=== PATIENT | female | born 1970 | race Caucasian/White ===

== ENCOUNTER 2019-05-06 15:56 | Emergency (ER) | payer BC, SELFPAY ==
--- NOTE | ~2019-05-06 | XR_ITS ---
EXAMINATION: XR ankle LT min 3V DATE: 05/06/2019 17:01 INDICATION: Left ankle pain TECHNIQUE: Anteroposterior, lateral, mortise, and additional oblique view of the ankle were obtained. COMPARISON: None. FINDINGS: There is no fracture, dislocation, or subluxation. The bones and joint spaces are normal. T here is ankle soft tissue swelling. A plantar calcaneal enthesophyte is noted. IMPRESSION: 1. Ankle soft tissue swelling without acute osseous abnormality. Reviewed, dictated and finalized at location A. MUFF ASSEMBLER
[2019-05-06 15:58] VITALS: BP 132/74; PULSE 92; RESP 16; TEMP 36.2; O2SAT 100
--- NOTE | 2019-05-06 17:18 | ED.GENADULT ---
HPI - General Adult General Chief complaint: Extremity Injury, Lower Stated complaint: left ankle injury, tailbone pain x4 months Time Seen by Provider: 05/06/19 16:07 Source: patient Mode of arrival: ambulatory Limitations: no limitations History of Present Illness HPI narrative: Patient is a 48-year-old female who presents to emergency department for evaluation of left ankle injury that occurred was ambulating rolled the ankle with bruising swelling and tenderness patient has continued to ambulate on the extremity and presents for evaluation of continued pain. Patient also notes tailbone pain for 4 months that occurs most days is worse with prolonged sitting and standing has not been seen for this complaint denies radiation of pain Related Data Home Medications Medication Instructions Recorded Confirmed ergocalciferol (vitamin D2) 05/06/19 sumatriptan succinate mg PO 05/06/19 topiramate 05/06/19 venlafaxine mg PO 05/06/19 zolpidem 05/06/19 Allergies Allergy/AdvReac Type Severity Reaction Status Date / Time No Known Allergies Allergy Verified 05/06/19 16:34 Review of Systems Review of Systems: Narrative: CONSTITUTIONAL: Denies fever, chills, or sweats. SKIN: Patient with bruising and swelling of the ankle and foot MUSCULOSKELETAL: Positive for left ankle pain NEUROLOGIC: Denies numbness, or weakness. PMFSH Social History Social History Gender identity (if verbalized by the patient): Female Exam Narrative: Exam Narrative: GENERAL: Well-appearing, well-nourished, and in no acute distress. HEAD: Normocephalic, atraumatic. EYES: PERRLA and EOMI. ENT: Nares clear, no rhinorrhea or epistaxis. Mucous membranes moist. EXTREMITIES: Bruising swelling and tenderness of the left ankle joint made worse with palpation SKIN: Warm, dry, no rash. NEURO: No focal deficits. Alert and oriented x3. Cranial nerves II through XII grossly intact. Neurovascularly intact PSYCH: Normal mood and affect. Course Course Emergency Course: Patient in the room in no distress aware of case findings treatment plan and diagnosis agreeing to follow-up as directed Vital Signs Vital signs: Vital Signs Temperature 97.1 F L 05/06/19 15:58 Pulse Rate 92 05/06/19 15:58 Respiratory Rate 16 05/06/19 15:58 Blood Pressure 132/74 05/06/19 15:58 Pulse Oximetry 100 05/06/19 15:58 Temperature 97.1 F L 05/06/19 15:58 Pulse Rate 92 05/06/19 15:58 Respiratory Rate 16 05/06/19 15:58 Blood Pressure 132/74 05/06/19 15:58 Pulse Oximetry 100 05/06/19 15:58 Medical Decision Making MDM Narrative Medical decision making narrative: Patients injury or pain is consistent with musculoskeletal etiology. No signs of neurological or vascular compromise on exam. Compartments and tisues are soft without signs of compartment syndrome. Pain is felt appropriate for further evaluation on an outpatient basis. Vital Signs Vital Signs: Vital Signs Temperature 97.1 F L 05/06/19 15:58 Pulse Rate 92 05/06/19 15:58 Respiratory Rate 16 05/06/19 15:58 Blood Pressure 132/74 05/06/19 15:58 Pulse Oximetry 100 05/06/19 15:58 Temperature 97.1 F L 05/06/19 15:58 Pulse Rate 92 05/06/19 15:58 Respiratory Rate 16 05/06/19 15:58 Blood Pressure 132/74 05/06/19 15:58 Pulse Oximetry 100 05/06/19 15:58 Imaging Data Radiologist's impression: ITS Impressions Ankle X-Ray 05/06/19 17:08 IMPRESSION: 1. Ankle soft tissue swelling without acute osseous abnormality. Discharge Plan Discharge Clinical Impression: Ankle strain Patient Disposition: Home, Self-Care Condition: Stable Instructions: Antibiotic Form, Ankle Strain (ED) Additional Instructions: Wear brace and use crutches. No weight on the affected leg until able to bear weight without pain. Ice and elevate extremity. Pain medication as needed and directed.
== END 2019-05-06 17:32 | disposition home or self-care (01) ==
PROVIDERS: Emergency Provider Emergency Medicine; PCP Internal Medicine
DX: S39.013A Strain of muscle, fascia and tendon of pelvis, initial encounter (principal); X50.9XXA Other and unspecified overexertion or strenuous movements or postures, initial encounter
CPT/HCPCS: 73610; 99283

== ENCOUNTER 2019-07-04 11:38 | Outpatient (CLI) | payer BC, SELFPAY ==
--- NOTE | ~2019-07-04 | XR_ITS ---
EXAMINATION: XR sacrum coccyx min 2V INDICATION: Sacrococcygeal pain TECHNIQUE: Three views of the sacrum and coccyx are obtained. COMPARISON: CT, 03/04/2016 FINDINGS: Bone alignment is normal. There is no fracture. Phleboliths are noted in the pelvis. The sam wel gas pattern is normal. There is mild lumbar spondylosis. IMPRESSION: 1. No acute osseous abnormality. Reviewed, dictated and finalized at location A.
== END 2019-07-04 11:39 | disposition home or self-care (01) ==
LOC: CHSIMG 11:41
PROVIDERS: PCP Internal Medicine; Visit Provider Internal Medicine
DX: M53.3 Sacrococcygeal disorders, not elsewhere classified (principal)
CPT/HCPCS: 72220

== ENCOUNTER 2019-07-11 08:54 | Outpatient (CLI) | payer BC, SELFPAY ==
--- NOTE | ~2019-07-11 | CT_ITS ---
EXAMINATION: CT pelvis wo con DATE: 07/11/2019 09:14 INDICATION: Chronic pelvic and tailbone pain. TECHNIQUE: High resolution computed tomography (CT) of the pelvis was performed without intravenous c ontrast. Additional sagittal and coronal reconstructions were performed. Automated exposure control a nd iterative reconstruction technique were employed. The dose-length product was 819.00 mGy-cm. COMPARISON: CT dated 03/04/2016 FINDINGS: Visualized portions of the bowels including the appendix are normal. Bladder is normal. The uterus is not identified and has likely been surgically resected. Bilateral adnexal cysts/follicles, the large r on the right measuring 2.6 cm. No free intraperitoneal gas or fluid. No pathologically enlarged pel vero or inguinal lymphadenopathy. Mild disc height loss and vacuum phenomena at L4-L5. Minimal osteoar thritis at the bilateral sacroiliac joints with vacuum phenomena and tiny marginal osteophytes. No co rtical erosions or subarticular changes to suggest an inflammatory sacroiliitis. There is also very m ild bilateral hip osteoarthritis with small marginal osteophytes and relatively preserved joint space s. IMPRESSION: 1. Normal sacrum and coccyx. No etiology identified for reported pelvic/tailbone pain. Reviewed, dictated and finalized at location A. IMPRESSION: 1. Normal sacrum and coccyx. No etiology identified for reported pelvic/tailbon e pain.
== END 2019-07-11 08:55 | disposition home or self-care (01) ==
LOC: CHSIMG 08:56
PROVIDERS: PCP Internal Medicine; Visit Provider Internal Medicine
DX: R10.2 Pelvic and perineal pain (principal); M25.572 Pain in left ankle and joints of left foot
CPT/HCPCS: 72192

== ENCOUNTER 2019-07-14 08:58 | Outpatient (CLI) | payer BC, SELFPAY ==
--- NOTE | ~2019-07-14 | MR_ITS ---
EXAMINATION: MR ankle LT wo con DATE: 07/14/2019 10:03 INDICATION: Left ankle pain. TECHNIQUE: Magnetic resonance imaging (MRI) of the left ankle was performed without intravenous contr ast. Sequences included sagittal PD-weighted FS FSE, sagittal PD-weighted FSE, coronal PD-weighted FS FSE, coronal PD-weighted FSE, axial PD-weighted FS FSE, and axial PD-weighted FSE. COMPARISON: Left ankle radiographs 05/06/2019 FINDINGS: Medial ankle ligaments: There is a sprain of the deltoid ligament characterized by thickening and increased signal intensity involving the superficial component, increased signal intensity involving the deep component, and benson ma around the superficial and deep components. Lateral ankle ligaments: There are at least partial tears of anterior talofibular ligament and calcaneofibular ligament charac terized by enlargement, increased signal intensity, and indistinctness. Posterior talofibular ligamen t is intact. There is a sprain of anterior tibiofibular ligament characterized by thickening and incr eased signal intensity. Posterior tibiofibular ligament is intact. Tendons: The medial and anterior ankle tendons and peroneal tendons are normal. There is mild Achilles tendino warren. Plantar fascia: There is thickening of central band of plantar fascia with increased signal at the calcaneal attachme nt, consistent with plantar fasciitis. There is an enthesophyte at the calcaneal attachment. Bones/other: Bone alignment is normal. No fracture. Talar dome is normal. Fluid: There are small ankle and subtalar joint effusions. IMPRESSION: 1. Medial and lateral ankle sprains. 2. Plantar fasciitis. Reviewed, dictated and finalized at location A.
== END 2019-07-14 08:59 | disposition home or self-care (01) ==
LOC: CHSIMG 08:59
PROVIDERS: PCP Internal Medicine; Visit Provider Internal Medicine
DX: R10.2 Pelvic and perineal pain (principal); M25.572 Pain in left ankle and joints of left foot
CPT/HCPCS: 73721

== ENCOUNTER 2020-02-04 07:30 | Outpatient (CLI) | payer BC, SELFPAY ==
[2020-02-05 19:47] LABS: SARS-CoV-2 RNA PCR Negative
== END 2020-02-04 07:31 | disposition home or self-care (01) ==
LOC: CHSLAB 07:32
PROVIDERS: PCP Internal Medicine; Visit Provider Internal Medicine
DX: Z20.828 Contact with and (suspected) exposure to other viral communicable diseases (principal)
CPT/HCPCS: 87635; C9803; U0003

== ENCOUNTER 2020-03-01 18:34 | Emergency (ER) | payer BC, SELFPAY ==
[2020-03-01] VITALS (15 sets, daily range): BP systolic 122–138; BP diastolic 57–91; PULSE 85–103; RESP 15–22; TEMP 36.8; O2SAT 90–100
--- NOTE | 2020-03-01 19:05 | ED.NAVMDI ---
HPI - Nausea/Vomiting/Diarrhea General Chief complaint: Nausea/Vomiting/Diarrhea Stated complaint: COVID+ 6DEC PERSISTENT N/V Time Seen by Provider: 03/01/20 19:04 Source: patient Mode of arrival: ambulatory Limitations: no limitations History of Present Illness HPI Narrative: Patient is a 49 yo female who presents for evaluation of vomiting in the setting of COVID infection. Patient became symptomatic February 21, positive test February 23, has developed some nausea with repeated episodes of emesis over the past 2 to 3 days. Patient states she has not been able to tolerate any oral intake. She reports daily fever, myalgias. She denies cough, at times has some mild shortness of breath, but she denies any severe respiratory symptoms. No rashes. She reports loss of sense of taste and smell. Patient has tried 2 doses of Zofran without improvement in her symptoms. 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 Patient also states she was diagnosed with an ear infection has been taking amoxicillin which she believes is upsetting her stomach as well. Related Data Home Medications Medication Instructions Recorded Confirmed ergocalciferol (vitamin D2) 05/06/19 sumatriptan succinate mg PO 05/06/19 topiramate 05/06/19 venlafaxine mg PO 05/06/19 zolpidem 05/06/19 Acidophilus 03/01/20 Pepcid 03/01/20 Zofran ODT 03/01/20 amoxicillin 03/01/20 03/01/20 ibuprofen 03/01/20 Allergies Allergy/AdvReac Type Severity Reaction Status Date / Time No Known Allergies Allergy Verified 03/01/20 19:00 Review of Systems Review of Systems: Narrative: CONSTITUTIONAL: Reports fever and chills. EYES: Denies visual changes, redness, or discharge. ENT: Denies rhinorrhea, congestion, sore throat, or otalgia. CARDIOVASCULAR: Denies chest pain, palpitations, or edema. RESPIRATORY: Denies cough, reports occasional dyspnea, denies that currently GASTROINTESTINAL: Denies abdominal pain, reports nausea and vomiting GENITOURINARY: Denies dysuria or hematuria. SKIN: Denies rash or itching. MUSCULOSKELETAL: Denies back pain, joint pain, or myalgia. NEUROLOGIC: Denies headache, numbness, or weakness. [facility] Past Medical History Medical History (Updated 03/01/20 @ 20:41 by Avani Moreira MD) No pertinent past medical history Social History Social History (Updated 03/01/20 @ 19:59 by Avani Moreira MD) Smoking status: Never smoker Alcohol intake: never Substance use: never Gender identity (if verbalized by the patient): Female Exam Narrative: Exam Narrative: GENERAL: Awake, alert, conversant HEAD: Normocephalic, atraumatic. EYES: PERRLA and EOMI. ENT: Nares clear, no rhinorrhea or epistaxis. Mucous membranes dry, tympanic membranes are clear bilaterally without effusion, exudate or perforation. No bulging. Intact light reflexes bilaterally. NECK: Supple. CHEST: No respiratory distress, breathing even and non labored HEART: Regular rate, sinus rhythm ABDOMEN:Non distended, non tender EXTREMITIES: Normal range of motion. No edema. SKIN: Warm, dry, no rash. NEURO:No focal deficits. Alert and oriented x3 Course Vital Signs Vital signs: Vital Signs Temperature 36.8 C 03/01/20 18:45 Pulse Rate 98 03/01/20 18:45 Respiratory Rate 20 03/01/20 18:45 Blood Pressure 129/71 03/01/20 18:45 Pulse Oximetry 99 03/01/20 18:45 Temperature 36.8 C 03/01/20 18:45 Pulse Rate 96 03/01/20 21:36 Respiratory Rate 20 03/01/20 21:36 Blood Pressure 138/57 L 03/01/20 21:01 Pulse Oximetry 99 03/01/20 21:36 MDM - Nausea/Vomiting/Diarrhea MDM Narrative Medical decision making narrative: Patient presented for evaluation of intractable nausea and vomiting in the setting of recent Covid. At the time of assessment, ABCs are intact and vital signs are stable. Patient is not having any current respiratory symptoms or chest pain. Patient laboratory results notable for mild leukopenia, mild
[2020-03-01 19:19] LABS: Basophils Percent Auto 0.5 % (0.2-1.2); Hematocrit 44.2 % (37.0-47.0); Hemoglobin 15.2 g/dL (12.0-15.0); Immature Granulocyte Absolute 0.05 K/mm3 (0.00-0.031); Immature Granulocyte Percent A 1.3 % (0-0.5); Lymphocytes Percent Auto 30.8 % (18.3-44.2); Mean Corpuscular HGB Conc 34.4 g/dl (32-36); Mean Corpuscular Hemoglobin 29.7 pg (26-34); Mean Corpuscular Volume 86.5 fl (80-100); Mean Platelet Volume 10.2 fl (7.4-10.4); Monocytes Absolute Auto 0.3 K/mm3 (0.1-0.6); Monocytes Percent Auto 8.5 % (2.6-8.5); Neutrophils Absolute Auto 2.3 K/mm3 (1.3-6.7); Neutrophils Percent Auto 58.9 % (45.5-73.1); Platelet Count Result 179 k/mm3 (150-375); Red Blood Count 5.11 M/mm3 (4.2-5.4); Red Cell Distribution Width 13.5 % (11.5-14.5); White Blood Count 3.9 K/mm3 (4.5-10.0)
--- NOTE | 2020-03-01 19:26 | PC.NURSE ---
Report to Eleanor Myrick RN, to continue care. Pt ambulatory to bathroom for clean catch urine collection. Pt instructed to wear mask whenever out of the room.
[2020-03-01 19:31] LABS: Alanine Aminotransferase 41 U/L (4-35); Albumin Level 4.3 g/dL (3.5-5.1); Alkaline Phosphatase 122 U/L (38-126); Anion Gap 10 mmol/L (8-16); Aspartate Amino Transferase 42 U/L (14-36); Bilirubin,Total 0.4 mg/dL (0.2-1.3); Blood Urea Nitrogen 12 mg/dL (7-17); Calcium 9.1 mg/dL (8.4-10.2); Carbon Dioxide 23 mmol/L (22-30); Chloride 107 mmol/L (98-107); Estimated CRCL calculation 83 ml/min; Estimated Glomerular Filt Rate > 60; Glucose 121 mg/dL (65-105); Lipase 42 U/L (23-300); Sodium 140 mmol/L (137-145)
[2020-03-01] MEDS: FAMOTIDINE 20 MG/2 ML VIAL IV PUSH (19:45)
[2020-03-01] MEDS: METOCLOPRAMIDE HCL INJ 10 MG/2 ML VIAL IV PUSH (19:45)
[2020-03-01] MEDS: SODIUM CHLORIDE 0.9% IV 1,000 ML 999 ML IV CONT (19:45)
[2020-03-01 20:01] LABS: Add Urine Microscopic? YES; Appearance Urine Cloudy (Clear); Bacteria Urine Trace /hpf; Bilirubin Urine Negative (Negative); Blood Urine 1+ (Negative); Color Urine Yellow (Yellow); Glucose Urine UA Negative (Negative); Ketones Urine Negative (Negative); Leukocyte Esterase Ur Negative LEU/UL (Negative); Mucus Urine Few /lpf; Nitrate Urine Negative (Negative); Protein Urine 2+ mg/dL (Negative); RBC Urine 0-2 /hpf (0-2); Specific Grav Ur 1.026 (1.001-1.035); Squamous Epithelial Cell Urine Few /hpf (Few); Urobilinogen Urine Negative mg/dL (<2.0); WBC Clumps Urine Present /HPF; WBC Urine 21-30 /hpf
[2020-03-01] MEDS: DEXTROSE 5%/LACTATED RINGERS 1,000 ML 100 ML IV CONT (20:52)
[2020-03-01] MEDS: POTASSIUM CHLORIDE 20 MEQ PACKET (FOR LIQUID) 40 MEQ PO (20:53)
--- NOTE | 2020-03-01 21:38 | PC.NURSE ---
Patient drinking water for PO challenge. tolerating well.
== END 2020-03-01 22:36 | disposition home or self-care (01) ==
PROVIDERS: Emergency Medicine; Emergency Provider Emergency Medicine; PCP Internal Medicine
DX: E86.0 Dehydration (principal); E87.6 Hypokalemia
CPT/HCPCS: 36415; 80053; 81001; 83690; 85025; 87086; 96361; 96374; 96375; 99284; A9270; J2765; J7030; J7121

== ENCOUNTER 2020-03-06 18:39 | Emergency (ER) | payer BC, SELFPAY ==
[2020-03-06] VITALS (8 sets, daily range): BP systolic 108–129; BP diastolic 64–83; PULSE 78–104; RESP 18–21; TEMP 36.6; O2SAT 98–100
--- NOTE | ~2020-03-06 | XR_ITS ---
EXAMINATION: XR chest 1V portable EXAM DATE: 03/06/2020 19:13 INDICATION: Shortness of breath, nausea vomiting diarrhea, weakness, body aches. COVID positive diagn osed February 23. TECHNIQUE: Portable AP frontal chest x-ray was obtained. Comparison is made to prior examination from 01/14/2016. FINDINGS: There is interval development of moderate amount of predominantly linear bilateral acute ai rspace disease likely combination of COVID pneumonia and atelectasis given history provided. No pneum othorax or pleural effusion. Cardiomediastinal silhouette is normal. There are no osseous abnormaliti es identified. IMPRESSION: Development of moderate amount of bilateral pneumonia and atelectasis. Reviewed, dictated and finalized at location G. PLACER IMPRESSION: Development of moderate amount of bilateral pneumonia and atelectas is.
--- NOTE | ~2020-03-06 | CT_ITS ---
EXAMINATION: CTA chest PE abdomen pel EXAM DATE: 03/06/2020 20:50 INDICATION: Nausea and vomiting. Worsening shortness of breath. Diarrhea. COVID 19 positive. TECHNIQUE: Spiral CTA of the chest (pulmonary arteries) was performed with 100 cc Omnipaque 350 intr avenous contrast injection. Images were acquired during the pulmonary arterial phase. Coronal maxi mum intensity projection 3D-reconstructions were created by the technologist on dedicated workstation . Axial, coronal and sagittal reformatted images were reviewed. Spiral CT of the abdomen and pelvis was then performed with the same intravenous contrast injection. Axial, coronal and sagittal reform atted images were reviewed. The dose-length product (DLP) for this examination was 1241.93 mGy-cm. The exposure was tailored according to patient size (auto mA exposure control), and iterative recons truction (ASIR) was used as additional dose reduction technique. Comparison is made to prior examinat ion from 07/11/2019. FINDINGS: CHEST: There are no pulmonary emboli. No thoracic aortic dissection. Bilateral patchy peripheral pr edominant groundglass opacities but would be regions of linear confluence. Appearance is typical of s ubacute COVID 19 pneumonia. Less likely acute possibilities include influenza, pulmonary edema or he morrhage. Some chronic processes that can have this appearance include cryptogenic organizing pneumon ia, desquamative interstitial pneumonia, nonspecific interstitial pneumonia, drug toxicity, connectiv e tissue disease. Please clinically correlate and test as appropriate. There are no pleural or pericardial effusions. Tracheobronchial tree is patent. There is right in frahilar lymphadenopathy with a node measuring 1.6 x 1.2 cm. Another infrahilar lymph node measuring about 2.2 x 1.6 cm. There is no pneumothorax. Heart normal in size. No evidence of coronary mercedes rial calcification. ABDOMEN PELVIS: Right liver lobe lesion measuring 3.0 cm with peripheral nodular enhancement consiste nt with hemangioma. Spleen, adrenal glands, pancreas are unremarkable. Gallbladder is unremarkable. No biliary obstruction. Portal and splenic veins are patent. Kidneys enhance symmetrically. There is no hydronephrosis. Probable 4 mm left inferior calyceal stone. The uterus is not identified and has likely been surgically resected. The bladder is unremarkable. There is no retroperitoneal or pe lvic lymphadenopathy. The appendix is normal. The stomach and small bowel are unremarkable. There is expected amount of c olonic stool. No free intraperitoneal gas. There are no osteoblastic or osteolytic lesions identi fied. IMPRESSION: 1. Moderate amount of bilateral airspace disease appearance consistent with subacute COVID pneumonia . 2. Right hilar, infrahilar lymphadenopathy. 3. Probable small left inferior calyceal stone. 4. Liver hemangioma. 5. No pulmonary emboli. Reviewed, dictated and finalized at location G. ROOM MAID IMPRESSION: 1. Moderate amount of bilateral airspace disease appearance consistent with son bacute COVID pneumonia. 2. Right hilar, infrahilar lymphadenopathy. 3. Probable small left inferior calyceal stone. 4. Liver hemangioma. 5. No pulmonary emboli.
[2020-03-06 19:09] LABS: Basophils Percent Auto 0.4 % (0.2-1.2); Eosinophils Absolute Auto 0.1 K/mm3 (0-0.3); Eosinophils Percent Auto 1.6 % (0-4.4); Hematocrit 43.8 % (37.0-47.0); Hemoglobin 15.1 g/dL (12.0-15.0); Immature Granulocyte Percent A 1.8 % (0-0.5); Lymphocytes Absolute Auto 1.36 K/mm3 (0.9-3.2); Mean Corpuscular HGB Conc 34.5 g/dl (32-36); Mean Corpuscular Hemoglobin 29.2 pg (26-34); Mean Corpuscular Volume 84.6 fl (80-100); Mean Platelet Volume 9.2 fl (7.4-10.4); Monocytes Absolute Auto 0.4 K/mm3 (0.1-0.6); Monocytes Percent Auto 7.8 % (2.6-8.5); Neutrophils Absolute Auto 3.7 K/mm3 (1.3-6.7); Neutrophils Percent Auto 64.4 % (45.5-73.1); Platelet Count Result 315 k/mm3 (150-375); Red Blood Count 5.18 M/mm3 (4.2-5.4); Red Cell Distribution Width 13.2 % (11.5-14.5); White Blood Count 5.7 K/mm3 (4.5-10.0)
[2020-03-06 19:17] LABS: Atypical Lymphocytes Present; Platelet Estimate Adequate (Adequate)
[2020-03-06 19:21] LABS: D Dimer 0.69 ug/mL (<0.48)
[2020-03-06 19:22] LABS: Alanine Aminotransferase 233 U/L (4-35); Albumin Level 4.3 g/dL (3.5-5.1); Alkaline Phosphatase 183 U/L (38-126); Anion Gap 13 mmol/L (8-16); Aspartate Amino Transferase 131 U/L (14-36); Bilirubin,Total 0.7 mg/dL (0.2-1.3); Blood Urea Nitrogen 20 mg/dL (7-17); Calcium 9.6 mg/dL (8.4-10.2); Carbon Dioxide 25 mmol/L (22-30); Chloride 104 mmol/L (98-107); Estimated CRCL calculation 84 ml/min; Estimated Glomerular Filt Rate > 60; Glucose 115 mg/dL (65-105); Lipase 71 U/L (23-300); Sodium 142 mmol/L (137-145)
[2020-03-06 21:05] LABS: Add Urine Microscopic? YES; Amorphous Sediment Urine Few; Appearance Urine Cloudy (Clear); Bacteria Urine Trace /hpf; Bilirubin Urine Negative (Negative); Blood Urine 1+ (Negative); Color Urine Amber (Yellow); Glucose Urine UA Negative (Negative); Ketones Urine 1+ mg/dL (Negative); Leukocyte Esterase Ur Negative LEU/UL (Negative); Mucus Urine Rare /lpf; Nitrate Urine Negative (Negative); Protein Urine 1+ mg/dL (Negative); Specific Grav Ur 1.027 (1.001-1.035); Squamous Epithelial Cell Urine Moderate /hpf (Few); Urobilinogen Urine Negative mg/dL (<2.0)
[2020-03-06] MEDS: ONDANSETRON INJ 4 MG/2 ML VIAL IV PUSH (21:10)
--- NOTE | 2020-03-06 21:11 | PC.NURSE ---
juarez given. provider in room. all test results and plan for treatment at home reviewed with patient.
--- NOTE | 2020-03-06 21:12 | ED.GENADULT ---
HPI - General Adult General Chief complaint: Nausea/Vomiting/Diarrhea Stated complaint: N/V COVID + Time Seen by Provider: 03/06/20 18:49 Source: patient Mode of arrival: ambulatory Limitations: no limitations History of Present Illness HPI narrative: Patient presents with chief complaint of nausea and vomiting and fatigue that has been present since this and positive for Covid on 02-24-2020. Patient states at first she was taken Zofran then she started taking Reglan which helps but when it is about to be time for a new dose her symptoms return. Patient states that she has been try to drink fluids but she has not been able to eat much food. Patient reports reports diffuse abdominal discomfort. She denies vomiting or having any blood in her stools. Patient has not had any fevers, chills. She states she has had some shortness of breath but does not note severe increase in shortness of breath today. Related Data Home Medications Medication Instructions Recorded Confirmed ergocalciferol (vitamin D2) 05/06/19 sumatriptan succinate mg PO 05/06/19 topiramate 05/06/19 venlafaxine mg PO 05/06/19 zolpidem 05/06/19 Acidophilus 03/01/20 Pepcid 03/01/20 Zofran ODT 03/01/20 amoxicillin 03/01/20 03/01/20 ibuprofen 03/01/20 Allergies Allergy/AdvReac Type Severity Reaction Status Date / Time No Known Allergies Allergy Verified 03/06/20 18:56 Review of Systems Review of Systems: Narrative: CONSTITUTIONAL: Denies fever, chills, or sweats. EYES: Denies visual changes, redness, or discharge. ENT: Denies rhinorrhea, congestion, sore throat, or otalgia. CARDIOVASCULAR: Denies chest pain, palpitations, or edema. RESPIRATORY: Reports dyspnea denies cough GASTROINTESTINAL: Reports abdominal pain, nausea, vomiting, denies diarrhea. GENITOURINARY: Denies dysuria or hematuria. SKIN: Denies rash or itching. MUSCULOSKELETAL: Denies back pain, joint pain, or myalgia. NEUROLOGIC: Denies headache, numbness, dizziness, or weakness. PSYCHIATRIC: Denies anxiety or depression. [facility] Past Medical History Medical History (Updated 03/06/20 @ 21:25 by Ezekiel Masters PA-C) No pertinent past medical history Social History Social History (Updated 03/01/20 @ 19:59 by Avani Moreira MD) Smoking status: Never smoker Alcohol intake: never Substance use: never Gender identity (if verbalized by the patient): Female Exam Narrative: Exam Narrative: GENERAL: Well-appearing, well-nourished, and in no acute distress. HEAD: Normocephalic, atraumatic. EYES: PERRLA and EOMI. NECK: Supple. No adenopathy or masses. CHEST: Clear to auscultation. No respiratory distress. No wheezes rales or rhonchi HEART: Regular rate and rhythm. No murmur heard. Normal peripheral pulses. ABDOMEN: Patient holding emesis bag when not actively vomiting. Soft, diffuse tenderness, nondistended, normal active bowel sounds. EXTREMITIES: Normal range of motion. No edema. SKIN: Warm, dry, no rash. NEURO: No focal deficits. Alert and oriented x3. PSYCH: Normal mood and affect. Course Vital Signs Vital signs: Vital Signs Temperature 97.9 F 03/06/20 18:51 Pulse Rate 80 03/06/20 18:51 Respiratory Rate 18 03/06/20 18:51 Blood Pressure 129/77 03/06/20 18:51 Pulse Oximetry 98 03/06/20 18:51 Temperature 97.9 F 03/06/20 18:51 Pulse Rate 85 03/06/20 21:15 Respiratory Rate 20 03/06/20 21:15 Blood Pressure 126/80 03/06/20 21:15 Pulse Oximetry 100 03/06/20 21:15 Medical Decision Making MDM Narrative Medical decision making narrative: Patient not appear dehydrated. Patient does have mild hypokalemia so she will be given p.o. potassium. Patient has Zofran and Reglan has been told to alternate them as they are individually instructed. Patient not hypoxic and her vital signs are stable. Patient instructed to drink plenty of fluids such as Pedialyte and Gatorade to keep up her electrolytes and to advance diet as tolerate
[2020-03-06] MEDS: POTASSIUM CHLORIDE 20 MEQ TABLET 40 MEQ PO (21:26)
[2020-03-06] MEDS: SODIUM CHLORIDE 0.9% IV 1,000 ML 999 ML IV CONT (21:38)
--- NOTE | 2020-03-06 22:25 | PC.NURSE ---
IVF almost complete. patient sitting on stretcher. continued nausea. aware that she can be discharged when fluids are done.
== END 2020-03-06 23:31 | disposition home or self-care (01) ==
PROVIDERS: Physician Assistant; Emergency Provider Emergency Medicine; PCP Internal Medicine
DX: U07.1 COVID-19 (principal); E87.1 Hypo-osmolality and hyponatremia; R91.8 Other nonspecific abnormal finding of lung field; D18.09 Hemangioma of other sites
CPT/HCPCS: 36415; 71045; 71275; 74177; 80053; 81001; 81025; 83690; 85025; 85380; 96374; 99284; A9270; J2405; J7030; Q9967

== ENCOUNTER 2020-03-10 16:10 | Outpatient (CLI) | payer BC, SELFPAY ==
[2020-03-10 16:54] LABS: Basophils Absolute Auto 0.06 K/mm3 (0.00-0.10); Basophils Percent Auto 0.8 % (0.0-1.0); Eosinophils Absolute Auto 0.15 K/mm3 (0.02-0.50); Eosinophils Percent Auto 1.9 % (1.0-6.0); Hematocrit 47.2 % (35.0-49.0); Hemoglobin 16.1 g/dL (12.0-15.0); Immature Granulocyte Percent A 2.6 % (0.0-0.0); Lymphocytes Absolute Auto 1.92 K/mm3 (1.10-4.50); Lymphocytes Percent Auto 24.6 % (18.0-42.0); Mean Corpuscular HGB Conc 34.1 g/dL (32.0-36.0); Mean Corpuscular Hemoglobin 28.8 pg (27.0-31.0); Mean Corpuscular Volume 84.4 fL (78.0-102.0); Mean Platelet Volume 9.3 fl (9.2-11.8); Monocytes Absolute Auto 0.61 K/mm3 (0.10-0.90); Monocytes Percent Auto 7.8 % (2.0-11.0); Neutrophils Absolute Auto 4.9 K/mm3 (1.7-7.2); Neutrophils Percent Auto 62.3 % (50.0-70.0); Platelet Count Result 440 K/mm3 (150-420); Red Blood Count 5.59 M/mm3 (4.20-5.40); White Blood Count 7.8 K/mm3 (4.8-10.8)
[2020-03-10 17:18] LABS: Alanine Aminotransferase 155 U/L (14-59); Alkaline Phosphatase 162 U/L (46-116); Amylase 108 U/L (25-115); Anion Gap 16 mmol/L (8-16); Aspartate Amino Transferase 54 U/L (15-37); Bilirubin,Total 0.7 mg/dL (0.00-1.00); Blood Urea Nitrogen 14 mg/dL (7-18); CRP 0.6 mg/dL (0.0-0.9); Calcium 9.3 mg/dL (8.5-10.1); Carbon Dioxide 20 mmol/L (21-32); Chloride 101 mmol/L (98-108); Estimated Glomerular Filt Rate > 60; Glucose 114 mg/dL (70-99); Lipase 193 U/L (73-393); Osmolality Calculated 285 mOsm/kg (285-295); Potassium 3.5 mmol/L (3.5-5.1); Sodium 137 mmol/L (136-145)
[2020-03-10 19:06] LABS: Erythrocyte Sedimentation Rate 18 mm/hr (0-15)
== END 2020-03-10 16:11 | disposition home or self-care (01) ==
LOC: CHSLAB 16:11
PROVIDERS: PCP Internal Medicine; Visit Provider Internal Medicine
DX: R11.2 Nausea with vomiting, unspecified (principal)
CPT/HCPCS: 36415; 80053; 82150; 83690; 85025; 85652; 86140

== ENCOUNTER 2020-03-17 13:10 | Outpatient (CLI) | payer BC, SELFPAY ==
[2020-03-17 14:28] LABS: Alanine Aminotransferase 60 U/L (14-59); Albumin Level 4.1 g/dL (3.4-5.0); Alkaline Phosphatase 122 U/L (46-116); Anion Gap 14 mmol/L (8-16); Aspartate Amino Transferase 21 U/L (15-37); Bilirubin,Total 0.7 mg/dL (0.00-1.00); Blood Urea Nitrogen 11 mg/dL (7-18); Calcium 9.5 mg/dL (8.5-10.1); Carbon Dioxide 22 mmol/L (21-32); Chloride 101 mmol/L (98-108); Estimated Glomerular Filt Rate 55; Glucose 106 mg/dL (70-99); Osmolality Calculated 283 mOsm/kg (285-295); Potassium 3.3 mmol/L (3.5-5.1); Sodium 137 mmol/L (136-145); Total Protein 7.9 g/dL (6.4-8.2)
== END 2020-03-17 13:11 | disposition home or self-care (01) ==
PROVIDERS: PCP Internal Medicine; Visit Provider Internal Medicine
DX: R94.5 Abnormal results of liver function studies (principal)
CPT/HCPCS: 36415; 80053

== ENCOUNTER 2020-03-22 08:10 | Outpatient (CLI) | payer BC, SELFPAY ==
--- NOTE | ~2020-03-22 | MR_ITS ---
EXAMINATION: MR brain IAC wo/w con DATE: 03/22/2020 11:28 INDICATION: Right ear pain. Headache. TECHNIQUE: Magnetic resonance imaging (MRI) of the brain, brainstem, and internal auditory canals was performed without and with 18 mL MultiHance intravenous contrast. Sequences included sagittal and ax ial T1-weighted FSE, axial diffusion-weighted FS EPI, axial T2*-weighted GRE, axial T2-weighted FLAIR Propeller, axial T2-weighted Propeller, small [id number] coronal FIESTA, small [id number] mario nal T1-weighted FSE, and small [id number] axial T1-weighted SPGR. Postcontrast sequences included axial T1-weighted FSE, small ffhae-eo-lcul coronal T1-weighted FSE, and small [id number] axial T1- weighted SPGR. Apparent diffusion coefficient (ADC) maps were created. COMPARISON: None. FINDINGS: There are scattered areas of nonspecific increased T2-weighted signal intensity in the cere bral white matter, which is within normal limits for the patient's age. There is no intracranial hemo rrhage, acute infarction, or abnormal intracranial mass lesion. The ventricles are normal in size. Th ere is mild mucosal thickening in right maxillary sinus. The orbits are normal. The mastoid air cells are normal. The internal auditory canals and inner and middle ears are normal. IMPRESSION: 1. Normal aging brain. Reviewed, dictated and finalized at location A. SIMULATION MODELING ENGINEER IMPRESSION: 1. Normal aging brain.
== END 2020-03-22 08:11 | disposition home or self-care (01) ==
LOC: CHSIMG 08:11
PROVIDERS: PCP Internal Medicine; Visit Provider Internal Medicine
DX: R51.9 Headache, unspecified (principal)
CPT/HCPCS: 70553; A9577

== ENCOUNTER 2022-11-25 01:06 | Day surgery (SDC) | payer BC, SELFPAY ==
[2022-11-18 09:39] VITALS: BMI 33.3
[2022-11-25 06:29] VITALS: BP 121/80; PULSE 83; RESP 18; TEMP 36.4; O2SAT 99
[2022-11-25] MEDS: LACTATED RINGERS 1,000 ML 150 ML IV CONT (06:39)
--- NOTE | 2022-11-25 07:25 | P.PNAN_ITS ---
Anes - Initial Pre Proc Eval Procedure: Operation Date: 11/25/22 07:30 Proposed Procedures p Screening Colonoscopy - Ted Torres DO Date/Time: 11/25/22 07:25 Surgeon: Ted Torres DO Pre Op Diagnosis: neoplasm screening Patient Data Age: 52 Gender: F Height: 1.75 m Weight: 100.6 kg Last Vital Signs Temp 97.5 F L 11/25/22 06:29 Pulse 83 11/25/22 06:29 Resp 18 11/25/22 06:29 BP 121/80 11/25/22 06:29 Pulse Ox 99 11/25/22 06:29 O2 Del Method Room Air 11/25/22 06:29 Allergies Allergy/AdvReac Type Severity Reaction Status Date / Time No Known Allergies Allergy Verified 11/25/22 06:28 Home Medications Medication Instructions Recorded Confirmed Type ergocalciferol (vitamin D2) 1,250 50,000 unit PO WEEKLY 05/06/19 11/18/22 History mcg (50,000 unit) capsule sumatriptan succinate 50 mg tablet 50 mg PO PRN PRN Migraine Headache 05/06/19 11/18/22 History topiramate 100 mg tablet 200 mg PO DAILY 05/06/19 11/18/22 History venlafaxine 150 mg 150 mg PO DAILY 05/06/19 11/18/22 History capsule,extended release 24 hr zolpidem 10 mg tablet 5 mg PO HS 05/06/19 11/18/22 History alprazolam 0.25 mg tablet 0.25 mg PO PRN PRN Anxiety 11/18/22 11/18/22 History rosuvastatin 10 mg tablet 10 mg PO DAILY 11/18/22 11/18/22 History Patient hx anesthesia problems: none Family hx anesthesia problems: none Results Review: All pre-operative results and documents have been reviewed as part of the pre- operative evaluation. [facility] Past Medical History Medical History (Updated 03/07/20 @ 00:00 by Enrico Drake) No pertinent past medical history Social History Social History (Updated 03/01/20 @ 19:59 by Avani Moreira MD) Smoking packs per day: 1 Smoking cigarettes per day: 20.0 Years smoked: 10 Smoking pack-years: 10.00 Smoking status: Former smoker Tobacco type: cigarettes Alcohol intake: current Substance use: never Substance use type: does not use Living arrangements: with family Gender identity (if verbalized by the patient): Female Spiritual care concerns: No Anes - Eval Final PreProcedure Day of Procedure 11/25/22 07:25 Patient weight: obese Heart: regular rate and rhythm Lungs: clear to auscultation Airway: Mallampati scale class II Neurological: alert and oriented Last oral intake: >/= 8 hours ASA classification: II Emergent: no Anesthetic plan: proceed Anesthesia type and monitoring: general GIVS and standard monitoring Results Review: All pre-operative results and documents have been reviewed as part of the pre- operative evaluation. Informed Consent: The patient's anesthetic plan and its attendant risks and benefits were discussed with the patient/family/POA. Questions were solicited and answers provided to the satisfaction of the patient/family/POA.
--- NOTE | 2022-11-25 07:34 | PM.IMHP ---
H&P: HPI History of Present Illness Date/Time: 11/25/22 07:34 Chief Complaint: Screening for colorectal cancer Narrative: This is a 52-year-old woman who presents for colonoscopy. She has never had a colonoscopy before. She denies any hematochezia or melena. She denies family history of colon cancer. Review of Systems Review of Systems: All systems reviewed & are unremarkable except as noted in HPI and below Constitutional: Constitutional: Denies chills, Denies fever(s), Denies headache(s) and Denies weight loss Eyes: Eyes: Denies change in vision ENT: Denies dizziness, Denies headache(s), Denies neck mass and Denies throat swelling Cardiovascular: Cardiovascular: Denies chest pain, Denies lightheadedness and Denies dyspnea Respiratory: Respiratory: Denies cough, Denies dyspnea and Denies wheezing Gastrointestinal: Gastrointestinal: Denies abdominal pain, Denies change in bowel habits, Denies nausea and Denies vomiting Genitourinary: Genitourinary: Denies hematuria and Denies dysuria Musculoskeletal: Musculoskeletal: Reports as per HPI Integumentary/Breasts: Skin/Breast: Reports as per HPI Neurologic: Denies dizziness and Denies headache(s) Allergic/Immunologic: Allergic/Immunologic: Denies throat swelling and Denies wheezing [facility] Past Medical History Medical History (Updated 11/25/22 @ 07:34 by Ted Torres DO) No pertinent past medical history Social History Social History (Updated 03/01/20 @ 19:59 by Avani Moreira MD) Smoking packs per day: 1 Smoking cigarettes per day: 20.0 Years smoked: 10 Smoking pack-years: 10.00 Smoking status: Former smoker Tobacco type: cigarettes Alcohol intake: current Substance use: never Substance use type: does not use Living arrangements: with family Gender identity (if verbalized by the patient): Female Spiritual care concerns: No Meds Home Medications and Allergies Home Medications Medication Instructions Recorded Confirmed Type ergocalciferol (vitamin D2) 1,250 50,000 unit PO WEEKLY 05/06/19 11/18/22 History mcg (50,000 unit) capsule sumatriptan succinate 50 mg tablet 50 mg PO PRN PRN Migraine Headache 05/06/19 11/18/22 History topiramate 100 mg tablet 200 mg PO DAILY 05/06/19 11/18/22 History venlafaxine 150 mg 150 mg PO DAILY 05/06/19 11/18/22 History capsule,extended release 24 hr zolpidem 10 mg tablet 5 mg PO HS 05/06/19 11/18/22 History alprazolam 0.25 mg tablet 0.25 mg PO PRN PRN Anxiety 11/18/22 11/18/22 History rosuvastatin 10 mg tablet 10 mg PO DAILY 11/18/22 11/18/22 History Allergies Allergy/AdvReac Type Severity Reaction Status Date / Time No Known Allergies Allergy Verified 11/25/22 06:28 Vital Signs Vital Signs - 24 hr 11/25/22 06:29 Temperature 36.4 C L Pulse Rate 83 Respiratory Rate 18 Blood Pressure 121/80 Pulse Oximetry 99 Oxygen Delivery Room Air Exam Const: General: no acute distress and alert Orientation/consciousness: patient oriented x3 HENMT: Head: normocephalic and atraumatic Ears: hearing grossly normal bilaterally Face/Nose/Sinus: Normal nares present Mouth: Yes Normal oral and palatal mucosa present Eyes: Periorbital: periorbital findings normal Sclera: sclerae normal EOM: EOMs intact bilaterally Neck: Neck: normal visual inspection, no lymphadenopathy and trachea midline Chest: Chest palpation & inspection: normal inspection of the chest Resp: Effort & Inspection: normal respiratory effort Auscultation: clear to auscultation bilaterally Cardio: Jugular venous distension: no JVD Rate: regular rate Rhythm: regular rhythm Heart sounds: S1 normal heart sound present and S2 normal heart sound present Peripheral pulses: Peripheral pulses 2+ throughout GI: Inspection: normal to inspection GI Palp: Yes Soft to palpation, No Tenderness to palpation present (GI), No Guarding due to palpation present (GI) and No Rebound tenderness present Percussion: Yes
[2022-11-25 07:55] VITALS: BP 109/70; PULSE 78; RESP 20; O2SAT 96
[2022-11-25 08:05] VITALS: BP 110/73; PULSE 70; RESP 18; O2SAT 99
[2022-11-25 08:15] VITALS: BP 118/75; PULSE 74; RESP 18; O2SAT 99
== END 2022-11-25 08:25 | disposition home or self-care (01) ==
PROVIDERS: PCP Internal Medicine; Visit Provider Surgery
PROC: 0DJD8ZZ Inspection of Lower Intestinal Tract, Via Natural or Artificial Opening Endoscopic (ICD-10-PCS; CPT 45378; principal; 2022-11-25 07:30)
DX: Z12.11 Encounter for screening for malignant neoplasm of colon (principal); K64.8 Other hemorrhoids; E66.9 Obesity, unspecified; Z68.32 Body mass index [BMI] 32.0-32.9, adult; Z87.891 Personal history of nicotine dependence
CPT/HCPCS: 45378; J2704; J7120

== ENCOUNTER 2023-03-24 08:36 | Outpatient (CLI) | payer BC, SELFPAY ==
[2023-03-24 09:03] LABS: Hemoglobin A1C 5.7 % (<5.7)
[2023-03-24 10:27] LABS: Alanine Aminotransferase 81 U/L (14-59); Alkaline Phosphatase 126 U/L (46-116); Anion Gap 7 mmol/L (8-16); Aspartate Amino Transferase 38 U/L (15-37); Bilirubin,Total 0.2 mg/dL (0.00-1.00); Blood Urea Nitrogen 19 mg/dL (7-18); Calcium 9.4 mg/dL (8.5-10.1); Carbon Dioxide 28 mmol/L (21-32); Chloride 106 mmol/L (98-108); Cholesterol 163 mg/dL (0-200); Creatine Kinase 51 U/L (26-192); Estimated Glomerular Filt Rate > 60; Glucose 110 mg/dL (70-99); HDL Direct 41 mg/dL (40-60); LDL Cholesterol Calculated 70 mg/dL (<130); Osmolality Calculated 295 mOsm/kg (285-295); Potassium 3.9 mmol/L (3.5-5.1); Sodium 141 mmol/L (136-145); Triglycerides 258 mg/dL (0-150)
== END 2023-03-24 08:37 | disposition home or self-care (01) ==
LOC: CHSLAB 08:38
PROVIDERS: PCP Internal Medicine; Visit Provider Internal Medicine
DX: E78.2 Mixed hyperlipidemia (principal); R73.01 Impaired fasting glucose
CPT/HCPCS: 36415; 80053; 80061; 82550; 83036

== ENCOUNTER 2023-08-18 12:32 | Outpatient (CLI) | payer BC, SELFPAY ==
[2023-08-18 13:08] LABS: Hemoglobin A1C 5.8 % (<5.7)
[2023-08-18 13:12] LABS: Alanine Aminotransferase 115 U/L (14-59); Alkaline Phosphatase 134 U/L (46-116); Anion Gap 13 mmol/L (4-12); Aspartate Amino Transferase 37 U/L (15-37); Bilirubin,Total 0.3 mg/dL (0.00-1.00); Blood Urea Nitrogen 14 mg/dL (7-18); Calcium 8.9 mg/dL (8.5-10.1); Carbon Dioxide 21 mmol/L (21-32); Chloride 108 mmol/L (98-108); Cholesterol 269 mg/dL (0-200); Estimated Glomerular Filt Rate > 60; Glucose 110 mg/dL (70-99); HDL Direct 37 mg/dL (40-60); LDL Cholesterol Calculated 173 mg/dL (<130); Osmolality Calculated 295 mOsm/kg (285-295); Potassium 4.3 mmol/L (3.5-5.1); Sodium 142 mmol/L (136-145); Total Protein 7.2 g/dL (6.4-8.2); Triglycerides 294 mg/dL (0-150)
== END 2023-08-18 12:33 | disposition home or self-care (01) ==
LOC: CHSLAB 12:34
PROVIDERS: PCP Internal Medicine; Visit Provider Internal Medicine
DX: R73.01 Impaired fasting glucose (principal); E78.2 Mixed hyperlipidemia
CPT/HCPCS: 36415; 80053; 80061; 83036

== ENCOUNTER 2023-09-01 07:41 | Outpatient (CLI) | payer BC, SELFPAY ==
--- NOTE | ~2023-09-01 | MM_ITS ---
EXAMINATION: MM screening mickey BI w [facility] HISTORY: Screening TECHNIQUE: Craniocaudal and mediolateral oblique 3-D tomosynthesis images were obtained and synthetic 2-D images were generated. CAD analysis was submitted and interpreted. COMPARISON: 08/07/2014 BREAST PARENCHYMAL COMPOSITION: Not dense: There are scattered areas of fibroglandular density. FINDINGS: There is no evidence of suspicious mass, calcification, or architectural distortion to sugg est malignancy in either breast. There has been no suspicious interval change. IMPRESSION: 1. No mammographic evidence of malignancy. 2. Recommend routine screening mammography in one year. BI-RADS Category 1: Negative Reviewed, dictated and finalized at location B.
== END 2023-09-01 07:42 ==
PROVIDERS: PCP Internal Medicine; Visit Provider Internal Medicine
DX: Z12.31 Encounter for screening mammogram for malignant neoplasm of breast (principal)
CPT/HCPCS: 77063; 77067

== ENCOUNTER 2023-10-06 08:15 | Outpatient (CLI) | payer BC, SELFPAY ==
--- NOTE | ~2023-10-06 | US_ITS ---
Limited Abdominal Sonogram: Real-time sonographic imaging of the right upper quadrant was performed. Clinical History: Elevated liver enzymes Findings: The liver appears normal with no evidence of bile duct dilatation. There is a 2.4 x 1.9 x 2.3 cm hyperechoic mass in the liver. Main portal vein demonstrates normal direction of flow. The gal lbladder is well distended, and appears normal with no evidence of gallstone or wall thickening. The common bile duct measures 4 mm. The visualized pancreas, aorta, and IVC are unremarkable. Impression: 2.4 cm hyperechoic hepatic mass, most likely hemangioma, versus possibly focal fatty infiltration. Co nfirmation/further evaluation with MR should be considered. Reviewed, dictated and finalized at [facility]. Impression: 2.4 cm hyperechoic hepatic mass, most likely hemangioma, versus possibly focal fatty infiltration. Confirmation/further evaluation with MR should be considerdahiana conn
== END 2023-10-06 08:16 ==
PROVIDERS: PCP Internal Medicine; Visit Provider Internal Medicine
DX: R79.89 Other specified abnormal findings of blood chemistry (principal); R16.0 Hepatomegaly, not elsewhere classified
CPT/HCPCS: 76705

== ENCOUNTER 2024-04-05 18:21 | Outpatient (CLI) | payer BC, SELFPAY ==
--- NOTE | ~2024-04-05 | XR_ITS ---
XR shoulder LT min 2V 04/05/2024 18:39 INDICATION: Left shoulder pain PROCEDURE: 4 views left shoulder COMPARISON: No prior studies for comparison. FINDINGS: Fracture, dislocation or subluxation is not identified. The soft tissues appear within norm al limits. No foreign bodies are identified. IMPRESSION: 1: NO ACUTE BONE OR JOINT ABNORMALITY IDENTIFIED. Reviewed, dictated and finalized at location A. DESIGN DRAFTSPERSON
== END 2024-04-05 18:22 | disposition home or self-care (01) ==
LOC: CHSIMG 18:22
PROVIDERS: PCP Internal Medicine; Visit Provider Internal Medicine
DX: M25.512 Pain in left shoulder (principal)
CPT/HCPCS: 73030

== ENCOUNTER 2024-04-17 17:01 | Outpatient (RCR) | payer BC, SELFPAY ==
[2024-04-17 17:50] VITALS: BP_SYST 60
--- NOTE | 2024-04-17 21:28 | OPREHPOC ---
Outpatient Therapy Plan of Care This is a Multidisciplinary Plan of Care that may contain components documented by all disciplines (PT, OT, and ST.) PT Problem 1 PT Problem #1 Knowledge Deficit PT Goal 1 Goal / Goal Update 1. independent and compliant with HEP Target Visit 6 PT Problem 2 PT Problem #2 Pain PT Goal 1 Goal / Goal Update 1. decrease pain at worst to 4/10 or less in the L shoulder. Target Visit 12 PT Problem 3 PT Problem #3 Impaired Range of Motion PT Goal 1 Goal / Goal Update 1. improve L shoulder passive flexion to 145 degrees or better 2. improve L Shoulder passive ER to 65 degrees or better Target Visit 6 PT Goal 2 Goal / Goal Update 1. improve active L shoulder flexion to 145 degrees or better 2. improve active L shoulder abduction to 125 degrees or better 3. improve active L shoulder ER to 60 degrees or better Target Visit 12 PT Problem 4 PT Problem #4 Impaired Strength PT Goal 1 Goal / Goal Update 1. improve L shoulder flexion to 4/5 or better overall Target Visit 12 PT Problem 5 PT Problem #5 Impaired Functional Mobility PT Goal 1 Goal / Goal Update 1. quick dash to display 20% or less functional deficits 2. patient to reach the occiput with the L UE to perform hair care/bathing 3. patient to reach the sacrum with the L UE to aid in dressing and bathing. Target Visit 12
--- NOTE | 2024-04-17 21:28 | PTOPEVAL1 ---
Assessment and note entered by JT File, PT Evaluation Information Assessment Status Evaluation ICD-10 Condition Codes (PT) Pain in left shoulder M25.512 Onset 04/12/24 Subjective Information patient reports her L shoulder has been bothering her since november of last year. she reports she incurred no injury, but woke up with pain one day. she reports since she has progressively gotten worse, and is unable to raise or lift the alice away from her body. she reports she is unable to dress, bath, do her hair, or perform other household tasks due to the limited mobility of the L arm. Reported Pain Level Pain Score 2: Self Report Assessment PT Clinical Summary mrs. colon is a 53 yo woman who presents to skilled PT services for evaluation and treatment of L shoulder pain. she presents today with decreased rom, decreased strength, and pain with all movement of the L shoulder. she likely suffers from L adhesive capsulitis. she would benefit from continued skilled PT to improve her objective /functional deficits and progress towards a return to her prior level functional activity performance/quality of life. Plan of Care Interventions Electrical Stimulation,Hot Pack/Cold Pack,Manual Therapy,Neuro Re-education,Patient/Caregiver Education,Therapeutic Activities,Therapeutic Exercise PT Services Indicated Yes Treatment Frequency and 3x weekly for 12 visits Duration These treatments will address the objective and functional deficits as defined above. The patient will be advanced safely and appropriately in order for the patient to progress towards his/her prior level of function. Additional exercises will be introduced and as well as a comprehensive home exercise program upon discharge, if needed, ?to ensure carryover of functional gains achieved in the clinic. This treatment plan has been reviewed and agreement upon by the patient.
--- NOTE | 2024-05-03 08:33 | PCPTNOTE ---
Patient called & cancelled scheduled appointment this date.
--- NOTE | 2024-05-30 15:36 | OPREHPOC ---
Outpatient Therapy Plan of Care This is a Multidisciplinary Plan of Care that may contain components documented by all disciplines (PT, OT, and ST.) PT Problem 1 PT Problem #1 Knowledge Deficit PT Goal 1 Goal / Goal Update 1. independent and compliant with HEP Target Visit 6 Progress Met PT Problem 2 PT Problem #2 Pain PT Goal 1 Goal / Goal Update 1. decrease pain at worst to 4/10 or less in the L shoulder. Target Visit 24 Progress Not Met PT Problem 3 PT Problem #3 Impaired Range of Motion PT Goal 1 Goal / Goal Update 1. improve L shoulder passive flexion to 145 degrees or better 2. improve L Shoulder passive ER to 65 degrees or better Target Visit 24 Progress Not Met PT Goal 2 Goal / Goal Update 1. improve active L shoulder flexion to 145 degrees or better 2. improve active L shoulder abduction to 125 degrees or better 3. improve active L shoulder ER to 60 degrees or better Target Visit 24 Progress Not Met PT Problem 4 PT Problem #4 Impaired Strength PT Goal 1 Goal / Goal Update 1. improve L shoulder flexion to 4/5 or better overall Target Visit 24 Progress Not Met PT Problem 5 PT Problem #5 Impaired Functional Mobility PT Goal 1 Goal / Goal Update 1. quick dash to display 20% or less functional deficits 2. patient to reach the occiput with the L UE to perform hair care/bathing 3. patient to reach the sacrum with the L UE to aid in dressing and bathing. Target Visit 24 Progress Not Met
--- NOTE | 2024-05-30 15:36 | PTOPREEVAL ---
Assessment and note entered by JT File, PT Evaluation Information Assessment Status Re-evaluation ICD-10 Condition Codes (PT) Pain in left shoulder M25.512 Onset 04/12/24 Subjective Information patient reports she continues to have issues with the L shoulder. she reports she is still unable to raise in any functional level or height. she reports it is still very painful. she does believe PT has helped some, but it is still very limited in mobility. Assessment PT Clinical Summary mrs. colon presents to skilled PT services for 12th skilled PT visit for the L Shoulder. she displays improved active and passive rom of the L shoulder since her initial evaluation. however, she is still objectively and functionally limited, especially from her goals. continued skilled PT is appropriate and advised to continue to improve upon her L shoulder rom and strength deficits to achieve her goals and return to prior level functional activity performance/quality of life. Plan of Care Interventions Electrical Stimulation,Hot Pack/Cold Pack,Manual Therapy,Neuro Re-education,Patient/Caregiver Education,Therapeutic Activities,Therapeutic Exercise PT Services Indicated Yes Treatment Frequency and continue skilled PT 3x weekly for 12 more visits Duration These treatments will address the objective and functional deficits as defined above. The patient will be advanced safely and appropriately in order for the patient to progress towards his/her prior level of function. Additional exercises will be introduced and as well as a comprehensive home exercise program upon discharge, if needed, ?to ensure carryover of functional gains achieved in the clinic. This treatment plan has been reviewed and agreement upon by the patient.
[2024-06-19 17:05] VITALS: BP_SYST 80
--- NOTE | 2024-06-19 17:47 | PTOPDC ---
Assessment and note entered by JT File, PT Evaluation Information Assessment Status Discharge ICD-10 Condition Codes (PT) Pain in left shoulder M25.512 Onset 04/12/24 Subjective Information patient reports continued pain and limited use of the L shoulder/UE. she reports she was told to have surgery by her ortho, but due to some family events coming up, she has to postpone surgery for a few months. Reported Pain Level Pain Score 6: Self Report Assessment PT Clinical Summary mrs. colon presents to skilled PT for her 24th skilled PT visit for the L shoulder. 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 she has shown no significant change in her L shoulder active or passive rom. she will need surgery to the L shoulder, and at this time will be DC'd from skilled PT. she does not plan on having surgery for several months due to family activities going on over the next few months. she was educated to continue to be consistent with her HEP at home. Plan of Care PT Services Indicated Yes
== END 2024-06-19 20:00 | disposition home or self-care (01) ==
LOC: CHSPT 17:01
PROVIDERS: PCP Internal Medicine; Visit Provider Internal Medicine
DX: M25.512 Pain in left shoulder (principal); M75.02 Adhesive capsulitis of left shoulder
CPT/HCPCS: 97014; 97110; 97112; 97140; 97161; G0283

== ENCOUNTER 2024-04-19 07:38 | Outpatient (CLI) | payer BC, SELFPAY ==
--- NOTE | ~2024-04-19 | MR_ITS ---
EXAMINATION: MR shoulder LT wo con DATE: 04/19/2024 08:36 INDICATION: Left shoulder pain. TECHNIQUE: Magnetic resonance imaging (MRI) of the left shoulder was performed without intravenous co ntrast. Sequences included axial PD-weighted FS FSE, coronal oblique PD-weighted FS FSE and T2-weight ed FS FSE, and sagittal oblique T2-weighted FS FSE and T1-weighted FSE. COMPARISON: Left shoulder radiographs 04/05/2024 FINDINGS: Coracoacromial arch: The acromion undersurface is curved in morphology (type II). There is mild acromioclavicular joint os teoarthritis. There is mild subacromial/subdeltoid bursitis. Rotator cuff: There is severe supraspinatus tendinopathy. There is an articular-sided partial thickness tear of sup raspinatus tendon measuring 6 mm proximal to distal by 4 mm anterior to posterior by 30% tendon thick ness. There is an interstitial tear of the distal attachment of the infraspinatus tendon measuring 5 mm proximal to distal by 9 mm anterior to posterior by 40% tendon thickness. Teres minor tendon is no rmal. There is mild subscapularis tendinopathy. There is no asymmetric fatty atrophy of the rotator c uff muscle bellies. Biceps tendon and glenoid labrum: Biceps tendon is in bicipital groove. Intra-articular biceps tendon is normal. The glenoid labrum is normal. Fluid: There is a small glenohumeral joint effusion. Bones/cartilage: Glenoid cartilage is normal. The humeral head cartilage is normal. IMPRESSION: 1. Partial-thickness rotator cuff tears. 2. Small glenohumeral joint effusion. 3. Mild subacromial/subdeltoid bursitis. 4. Mild acromioclavicular joint osteoarthritis. Reviewed, dictated and finalized at location A. SAW MARKER
--- OUTSIDE RECORDS SUMMARY | 2024-04-19 07:44 | XMS_ITS | Patient Health Summary ---
Author Organization [facility] Address [address] [place] [address] Care Team Providers Care Maintenance Analyst Name Role Phone Unavailable Primary Care Provider Unavailabl e Note from [facility],non-owned Affiliates and Associated Physician Practices is amultiple site organization consisting of ambulatory clinics and hospital sitesin [place], [place], [place] and [place]. This disclosure is being madepursuant to the Care Everywhere program and may not contain all information available regarding this patient. Last updated 17.[facility] Social History Tobacco Use Types Packs/Day Years Used Date Smoking Tobacco: Never Assessed Sex and Gender Information Value Date Recorded Sex Assigned at Not on file Gender Identity Not on file Sexual Orientation Not on file Procedures * LAB RESULTS ORDER(Performed 02/05/2020) Results * LAB RESULTS ORDER (02/05/2020) Scanned Document LAB - THERAPEUTIC DR QIU MONITORING ORDERABLES
--- OUTSIDE RECORDS SUMMARY | 2024-04-19 07:44 | XMS_ITS | Referral Summary ---
Author Organization [facility] Address [address] [place] [address] Care Team Providers Care Coding Consultant Name Role Phone Unavailable Primary Care Provider Unavailabl e Source Comments [facility],non-owned Affiliates and Associated Physician Practices is amultiple site organization consisting of ambulatory clinics and hospital sitesin [place], [place], [place] and [place]. This disclosure is being madepursuant to the Care Everywhere program and may not contain all information available regarding this patient. Last updated 17.[facility] Social History Tobacco Use Types Packs/Day Years Used Date Smoking Tobacco: Never Assessed Sex and Gender Information Value Date Recorded Sex Assigned at Not on file Gender Identity Not on file Sexual Orientation Not on file Plan of Treatment Not on file
--- OUTSIDE RECORDS SUMMARY | 2024-04-19 07:44 | XMS_ITS | Clinical Summary ---
Author Organization [facility] Address [address] [place] [address] Care Team Providers Care Insurance Sales Specialist Name Role Phone Unavailable Primary Care Provider Unavailabl e Source Comments [facility],non-owned Affiliates and Associated Physician Practices is amultiple site organization consisting of ambulatory clinics and hospital sitesin [place], [place], [place] and [place]. This disclosure is being madepursuant to the Care Everywhere program and may not contain all information available regarding this patient. Last updated 17.[facility] [address] Social History Tobacco Use Types Packs/Day Years Used Date Smoking Tobacco: Never Assessed Sex and Gender Information Value Date Recorded Sex Assigned at Not on file Gender Identity Not on file Sexual Orientation Not on file Plan of Treatment Health Maintenance Due Date Last Done Comments COLOGUARD (AGES 45-75) - COL ON CA SCREENING 1971 COLON MONITORING 1971 COLONOSCOPY - COLON CA SCREENING 1971 CT COLONOGRAPHY - COLON CA SCREENING 1971 Colorectal Cancer Screening 1971 FIT - COLON CA SCREENING 1971 FLEX SIG - COLON CA SCREENING 1971 LIPID TESTING 1971 MAMMOGRAM 1971 PAP SMEAR 1971 HIV SCREENING 07/26/1986 HEPATITIS C SCREENING 07/22/1989 DTAP/TDAP/TD VACCINES (1 - Tdap) 07/26/1990 HEPATITIS B VACCINE (1 of 3 - 19+ 3-dose series) 07/26/1990 PNEUMOCOCCAL VACCINE 50+ (1 of 1 - PCV) 07/26/2021 ZOSTER VACCINE (1 of 2) 07/26/2021 COVID-19 VACCINE (1 - 2023-2 5 season) 2023 INFLUENZA VACCINE (#1) 2023 DEPRESSION SCREENING 03/21/2024 HIB VACCINE Aged Out No longer eligi ble based on patient's age to complete this topic HPV VACCINE Aged Out No longer eligi ble based on patient's age to complete this topic MENINGOCOCCAL (Group B) VACCINE Aged Out No longer eligible based on patient's age to complete this topic MENINGOCOCCAL VACCINE Aged Out No brown yisel eligible based on patient's age to complete this topic PNEUMOCOCCAL VACCINE Aged Out No long er eligible based on patient's age to complete this topic
== END 2024-04-19 07:39 | disposition home or self-care (01) ==
LOC: CHSIMG 07:39
PROVIDERS: PCP Internal Medicine; Visit Provider Internal Medicine
DX: M25.512 Pain in left shoulder (principal); M75.112 Incomplete rotator cuff tear or rupture of left shoulder, not specified as traumatic; M25.412 Effusion, left shoulder; M75.52 Bursitis of left shoulder; M19.012 Primary osteoarthritis, left shoulder
CPT/HCPCS: 73221

== ENCOUNTER 2024-10-11 15:08 | Outpatient (RCR) | payer BC, SELFPAY ==
--- NOTE | 2024-10-11 16:15 | OPREHPOC ---
Outpatient Therapy Plan of Care This is a Multidisciplinary Plan of Care that may contain components documented by all disciplines (PT, OT, and ST.) PT Problem 1 PT Problem #1 Knowledge Deficit PT Goal 1 Goal / Goal Update independent and compliant with HEP Target Visit 6 PT Problem 2 PT Problem #2 Pain PT Goal 1 Goal / Goal Update patient to report no more than 2/10 pain at worst in the L shoulder Target Visit 13 PT Problem 3 PT Problem #3 Impaired Range of Motion PT Goal 1 Goal / Goal Update 165 degrees passive L shoulder flex 80 degrees or better passive L shoulder ER 70 degrees or better passive L shoulder IR Target Visit 13 PT Goal 2 Goal / Goal Update active L shoulder flexion to 160 degrees or better active L shoulder ER to the shirt collar active L shoulder IR to the lumbar spine Target Visit 13 PT Problem 4 PT Problem #4 Impaired Functional Mobility PT Goal 1 Goal / Goal Update quick dash to display 20% or less functional deficits patient to do hair with both UE's patient to get dressed with ease patient to use new kayak with family Target Visit 13
--- NOTE | 2024-10-11 16:16 | PTOPEVAL1 ---
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 she tried PT for it prior to surgery, but it was unsuccessful. she had surgical debridement and manipulation of the L shoulder on 10/09/24 and is coming to outpatient therapy for rehab now. she would like to be able to reach behind her back, reach behind head head, and perform all activities with the L UE that she can with the R UE. Reported Pain Level Pain Score 0: Self Report Assessment PT Clinical Summary mrs. colon is a 54 yo woman who presents to skilled PT services for evaluation and treatment after L shoulder JEAN-PIERRE and arthroscopic debridement. she presents today with deficits in active and passive rom of the L shoulder, as well as weakness and decreased functional use. continued skilled PT is indicated to return patient to her prior level functional activities performance and quality of life. Plan of Care Interventions Electrical Stimulation,Hot Pack/Cold Pack,Manual Therapy,Neuro Re-education,Patient/Caregiver Education,Therapeutic Activities,Therapeutic Exercise,Ultrasound,Other Other Interventions dry needling PT Services Indicated No Treatment Frequency and 5x weekly for 7 visits and then 3x weekly for 6 Duration visits (total of 13 visits) These treatments will address the objective and functional deficits as defined above. The patient will be advanced safely and appropriately in order for the patient to progress towards his/her prior level of function. Additional exercises will be introduced and as well as a comprehensive home exercise program upon discharge, if needed, ?to ensure carryover of functional gains achieved in the clinic. This treatment plan has been reviewed and agreement upon by the patient.
--- NOTE | 2024-11-08 17:07 | OPREHPOC ---
Outpatient Therapy Plan of Care This is a Multidisciplinary Plan of Care that may contain components documented by all disciplines (PT, OT, and ST.) PT Problem 1 PT Problem #1 Knowledge Deficit PT Goal 1 Goal / Goal Update independent and compliant with HEP Target Visit 6 Progress Met PT Problem 2 PT Problem #2 Pain PT Goal 1 Goal / Goal Update patient to report no more than 2/10 pain at worst in the L shoulder Target Visit 13 Progress Not Met PT Goal 2 Goal / Goal Update continue Target Visit 25 PT Problem 3 PT Problem #3 Impaired Range of Motion PT Goal 1 Goal / Goal Update 165 degrees passive L shoulder flex -not met 80 degrees or better passive L shoulder ER -not met 70 degrees or better passive L shoulder IR -met Target Visit 13 Progress Partially Met PT Goal 2 Goal / Goal Update active L shoulder flexion to 160 degrees or better -not met active L shoulder ER to the shirt collar -not met active L shoulder IR to the lumbar spine -not met continue all not met Target Visit 25 Progress Not Met PT Problem 4 PT Problem #4 Impaired Functional Mobility PT Goal 1 Goal / Goal Update quick dash to display 20% or less functional deficits -not met patient to do hair with both UE's -not met patient to get dressed with ease -not met patient to use new kayak with family -not met Target Visit 13 Progress Not Met PT Goal 2 Goal / Goal Update continue Target Visit 25
--- NOTE | 2024-11-08 17:07 | PTOPPROG ---
Assessment and note entered by Alfreda Interiano, PT Evaluation Information Assessment Status Progress Diagnosis adhesive capsulitis ICD-10 Condition Codes (PT) Pain in left shoulder M25.512 Other ICD-10 Condition Codes ( M75.02 PT) Onset 10/09/24 Subjective Information Lynn reports her left shoulder is still painful when she tries to lift her arm overhead and when she leaves it hanging at her side. She feels she has to have the left arm supported for it to be pain free. She still has limitations with overhead reaching and reaching behind her head and back. She is able to get to lower overhead cabinets and half of her head when she washes her hair or tries to fix her hair. Assessment PT Clinical Summary Lynn Cortez is a 54 yo woman who has completed 13 skilled PT services following a L shoulder JEAN-PIERRE and arthroscopic debridement. She reports she is getting better mobility overall but still has difficulty reaching into higher overhead cabinets, reaching the back of her head, and reaching behind her back. She demonstrates improvements in left shoulder AROM and PROM but still has functional limitations. She will continue to benefit from skilled PT to further address these limitations and improve her daily function. Plan of Care Interventions Electrical Stimulation,Hot Pack/Cold Pack,Manual Therapy,Neuro Re-education,Patient/Caregiver Education,Therapeutic Activities,Therapeutic Exercise,Ultrasound,Other Other Interventions dry needling PT Services Indicated Yes Treatment Frequency and 3 times a week for 12 visits Duration These treatments will address the objective and functional deficits as defined above. The patient will be advanced safely and appropriately in order for the patient to progress towards his/her prior level of function. Additional exercises will be introduced and as well as a comprehensive home exercise program upon discharge, if needed, ?to ensure carryover of functional gains achieved in the clinic. This treatment plan has been reviewed and agreement upon by the patient.
--- NOTE | 2024-11-15 17:57 | PTOPPROG ---
Assessment and note entered by Ofelia Lazcano, PT Evaluation Information Assessment Status Progress Diagnosis adhesive capsulitis ICD-10 Condition Codes (PT) Pain in left shoulder M25.512 Other ICD-10 Condition Codes ( M75.02 PT) Onset 10/09/24 Subjective Information Lynn denies any new complaints regarding her L shoulder today. She reports that she had her follow up with her surgeon yesterday and would like to go down to 1x/week for PT due to upcoming loss of insurance benefits due to a current strike at [facility]. She plans to continue with her stretches every day and have her stretch her shoulder so that she doesn't lose any motion. Assessment PT Clinical Summary Mrs. Cortez has attended 16 skilled PT visits following surgical debridement and manipulation due to frozen shoulder. She has been making slow but positive progress in her L shoulder PROM and AROM, however due to recent insurance reasons she will be transitioning to doing PT 1x/week rather than 3x/week. She is motivated to continue her HEP diligently at home on the days she's not at therapy and also plans to have her stretch her shoulder so she doesn't lose progress. Provided pt with handout for her and her for proper hand placement for stretching. Plan of Care Interventions Electrical Stimulation,Hot Pack/Cold Pack,Manual Therapy,Neuro Re-education,Patient/Caregiver Education,Therapeutic Activities,Therapeutic Exercise,Ultrasound,Other Other Interventions dry needling PT Services Indicated Yes Treatment Frequency and Transition to 1x/week for the remainder of current Duration POC (9 visits) These treatments will address the objective and functional deficits as defined above. The patient will be advanced safely and appropriately in order for the patient to progress towards his/her prior level of function. Additional exercises will be introduced and as well as a comprehensive home exercise program upon discharge, if needed, ?to ensure carryover of functional gains achieved in the clinic. This treatment plan has been reviewed and agreement upon by the patient.
== END 2025-01-09 23:59 | disposition home or self-care (01) ==
LOC: CHSPT 15:08
PROVIDERS: Visit Provider Orthopaedic Surgery Sports Medicine
DX: M75.02 Adhesive capsulitis of left shoulder (principal)
CPT/HCPCS: 97014; 97110; 97140; 97161; G0283